=== PATIENT | male | born 1990 | race Caucasian/White ===

== ENCOUNTER 2016-11-19 05:59 | Emergency (ER) | payer MEDICAID ==
[~2016-11-19] VITALS: Ht 167.6 cm; Wt 72.6 kg
[2016-11-19 06:00] VITALS: BP_SYST 122
[2016-11-19 06:12] VITALS: BP_SYST 122
== END 2016-11-19 06:12 ==
LOC: SED 05:59
DX: Z04.1 Encounter for examination and observation following transport accident (principal)
CPT/HCPCS: 99283